=== PATIENT | female | born 2000 | race Two or more races ===

== ENCOUNTER 2020-05-15 12:19 | Outpatient (CLI) | payer OTHER | END 2020-05-15 12:28 | disposition home or self-care (01) | LOC: RAD 12:19 | PROVIDERS: ATTEND Orthopaedic Surgery | DX: S62.326A Displaced fracture of shaft of fifth metacarpal bone, right hand, initial encounter for closed fracture (principal) ==

== ENCOUNTER 2020-07-11 13:10 | Outpatient (CLI) | payer OTHER | END 2020-07-11 13:14 | disposition home or self-care (01) | LOC: RAD 13:10 | PROVIDERS: ATTEND Orthopaedic Surgery | DX: S62.326A Displaced fracture of shaft of fifth metacarpal bone, right hand, initial encounter for closed fracture (principal) ==